=== PATIENT | male | born 1955 | race Caucasian/White ===

== ENCOUNTER 2018-04-04 13:35 | Emergency (ER) | payer OTHER, BC ==
[2018-04-04 13:58] VITALS: PULSE 79; TEMP 98; BMI 25.3
--- NOTE | 2018-04-04 14:00 | PDOC ---
History of Present Illness - General Chief Complaint: Injury Stated Complaint: FOREHEAD INJURY Time Seen by Provider: 04/04/18 13:48 History Source: Patient Exam Limitations: No Limitations - History of Present Illness Initial Comments: 04/04/18 13:56 Patient is a 62M with history of HTN and HLD here today complaining of a laceration to his forehead. Patient reports that he was fixing a door when the self-closing apparatus fell on his head. Denies loss of consciousness, vomiting , memory loss. Denies taking aspirin and any other blood thinner. Patient reports that he self-discontinued his blood pressure medication. Denies fevers, chills, nausea, vomiting. Denies fall, syncope/near-syncope, chest pain, and shortness of breath. Past History - Past Medical History Allergies/Adverse Reactions: Allergies Allergy/AdvReac Type Severity Reaction Status Date / Time rosuvastatin AdvReac myalgia, Verified 04/04/18 13:46 blurred vision Home Medications: Ambulatory Orders Multivitamin [Multi-Vitamin Daily] 1 each PO DAILY tablet 02/21/17 COPD: No - Suicide/Smoking/Psychosocial Hx Smoking History: Never smoked Hx Alcohol Use: Yes (RARE) Drug/Substance Use Hx: No Substance Use Type: None Review of Systems - Review of Systems Comments:: 04/04/18 14:03 GENERAL/CONSTITUTIONAL: No fever or chills. No weakness. HEAD, EYES, EARS, NOSE AND THROAT: No change in vision. No sore throat. CARDIOVASCULAR: No chest pain or shortness of breath RESPIRATORY: No cough, wheezing, or hemoptysis. GASTROINTESTINAL: No nausea, vomiting, diarrhea or constipation. GENITOURINARY: No dysuria, frequency, or change in urination. MUSCULOSKELETAL: No joint or muscle swelling or pain. No neck or back pain. SKIN: No rash NEUROLOGIC: +headache. No vertigo, loss of consciousness, or change in strength/ sensation. ENDOCRINE: No increased thirst. No abnormal weight change HEMATOLOGIC/LYMPHATIC: No anemia, easy bleeding, or history of blood clots. ALLERGIC/IMMUNOLOGIC: No hives or skin allergy. *Physical Exam - Vital Signs Last Vital Signs Temp Pulse Resp BP Pulse Ox 98.0 F 79 16 190/107 98 04/04/18 13:43 04/04/18 13:43 04/04/18 13:43 04/04/18 13:43 04/04/18 13:43 - Physical Exam Comments: 04/04/18 14:03 GENERAL: Awake, alert, and fully oriented, in no acute distress HEAD: T-shaped laceration about 1x1cm, normocephalic, no signs of basilar skull fracture EYES: PERRLA, EOMI, sclera anicteric, conjunctiva clear ENT: Auricles normal inspection, hearing grossly normal, nares patent, oropharynx clear without exudates. Moist mucosa NECK: Normal ROM, supple, no lymphadenopathy, JVD, or masses, no midline neck tenderness LUNGS: No distress, speaks full sentences, clear to auscultation bilaterally HEART: Regular rate and rhythm, normal S1 and S2, no murmurs, rubs or gallops, peripheral pulses normal and equal bilaterally. ABDOMEN: Soft, nontender, normoactive bowel sounds. No guarding, no rebound. No masses EXTREMITIES: Normal inspection, Normal range of motion, no edema. No clubbing or cyanosis. NEUROLOGICAL: Cranial nerves II through XII grossly intact. Normal speech, normal gait, no focal sensorimotor deficits SKIN: Warm, Dry, normal turgor, no rashes or lesions noted. Procedures - Laceration/Wound Repair Right Head Wound Length: to 2.5 cm Wound Explored: clean, no foreign body present Wound's Depth, Shape: superficial (T-shaped) Irrigated w/ Saline: Yes Anesthesia: 1% Lidocaine Amount of Anesthetic (ccs): 3 Wound Debrided: minimal Wound Repaired With: Sutures Suture Size/Type: 5:0 Number of Sutures: 3 Medical Decision Making - Medical Decision Making 04/04/18 14:04 Patient is 62M with history of HTN and HLD here today with head laceration. Vital signs show hypertension. PCP Dr Ghotra contacted, will start patient on losartan 50. Will repair, give tetanus. 04/04/18 14:27 Repaired as per note. Given return precautions. HTN medication sent to pharmacy. Instructed to f/u with Dr Ghotra. *DC/Admit/Observation/Transfer Diagnosis at time of Disposition: Laceration, Hypertension - Discharge Dispostion Disposition: HOME Condition at time of disposition: Good Decision to Admit order: No - Referrals Referrals: Mart Ghotra MD [Primary Care Provider] - - Patient Instructions Printed Discharge Instructions: DI for Laceration Repair Additional Instructions: Please return to the ED in 5 days to have your sutures removed. Please follow up with Dr Ghotra to have your blood pressure and sugars controlled Please return to the ED if you have any new, worsening or concerning symptoms. - Post Discharge Activity
[2018-04-04 14:02] VITALS: BP 178/93
[2018-04-04] MEDS ORDERED: DIPHTH,PERTUSS(ACELL),TET 0.5 ML DISP.SYRIN IM ONE (14:06)
--- NOTE | 2018-04-04 14:31 | PDOC ---
Attending Attestation - Resident Resident Name: [email or web address] - ED Attending Attestation I have performed the following: I have examined & evaluated the patient, The case was reviewed & discussed with the resident, I agree w/resident's findings & plan, Exceptions are as noted - HPI HPI: 04/04/18 14:31 Agree with residents HPI - Physicial Exam PE: 04/04/18 14:31 Agree with residents PE - Medical Decision Making 04/04/18 18:42 Minor head injury normal neurologic examination no indication for imaging based on [place] head CT rules. Laceration approximated by resident. Head injury discussed precautions and wound care precautions discussed patient. Findings, the need for follow-up and strict return instructions discussed with patient.
== END 2018-04-04 14:36 | disposition home or self-care (01) ==
LOC: FER 13:35
PROC: 0HQ1XZZ Repair Face Skin, External Approach (ICD-10-PCS; principal; 2018-04-04)
DX: S01.81XA Laceration without foreign body of other part of head, initial encounter (principal); I10 Essential (primary) hypertension; E78.5 Hyperlipidemia, unspecified; W20.8XXA Other cause of strike by thrown, projected or falling object, initial encounter; Y93.89 Activity, other specified; Y92.89 Other specified places as the place of occurrence of the external cause
CPT/HCPCS: 90715; 99282-25

== ENCOUNTER 2018-04-11 13:35 | Emergency (ER) | payer OTHER, BC ==
[2018-04-11 13:39] VITALS: BP 151/80; PULSE 71; TEMP 98.9; BMI 26.6
--- NOTE | 2018-04-11 14:02 | PDOC ---
Suture Removal/Wound Check HPI - History of Present Illness Chief Complaint: Suture/Staple Removal(Here) Stated Complaint: RT FOREHEAD SUTURE REMOVAL Time Seen by Provider: 04/11/18 13:39 Exam Limitations: Yes: No Limitations Treated at: [facility] ED Date of Last ED visit: 04/04/18 - Previous ED Treatment Type of procedure performed on last visit: Yes: Laceration Repair Tetanus Immunization: Yes: Given at last ED visit - Onset of Previous Treatment Date of Occurence: 04/04/18 Comment:: 04/11/18 13:58 62 M here for suture removal. Forehead lac sustained while installing cabinet 1 week ago. No LOC. Pt cleared by [place] head CT criteria at last visit. Pt has no complaints today. Denies MARLEY/N/V. Denies confusion/dizziness. Past History - Past Medical History Allergies/Adverse Reactions: Allergies Allergy/AdvReac Type Severity Reaction Status Date / Time rosuvastatin AdvReac myalgia, Verified 04/11/18 13:36 blurred vision Home Medications: Ambulatory Orders Multivitamin [Multi-Vitamin Daily] 1 each PO DAILY tablet 02/21/17 Losartan Potassium 50 mg PO DAILY #30 tablet 04/04/18 COPD: No HTN: Yes - Suicide/Smoking/Psychosocial Hx Smoking History: Never smoked Have you smoked in the past 12 months: No Hx Alcohol Use: No Drug/Substance Use Hx: No Substance Use Type: None Suture Removal/Wound Check PE - Physical Exam Laceration/Wound Check Symptoms: reports: None Current Severity Level: None Maximum Severity Level: None Pain Localization: None Location of Laceration/Wound: right: Head Pain Radiation: None *Review of Systems - Review of Systems Comments:: 04/11/18 14:00 "GENERAL/CONSTITUTIONAL: No fever or chills. No weakness. HEAD, EYES, EARS, NOSE AND THROAT: No change in vision. No ear pain or discharge. No sore throat. CARDIOVASCULAR: No chest pain or shortness of breath. RESPIRATORY: No cough, wheezing, or hemoptysis. GASTROINTESTINAL: No nausea, vomiting, diarrhea or constipation. GENITOURINARY: No dysuria, frequency, or change in urination. MUSCULOSKELETAL: No joint or muscle swelling or pain. No neck or back pain. SKIN: No rash NEUROLOGIC: No headache, vertigo, loss of consciousness, or change in strength/ sensation. ENDOCRINE: No increased thirst. No abnormal weight change. HEMATOLOGIC/LYMPHATIC: No anemia, easy bleeding, or history of blood clots. ALLERGIC/IMMUNOLOGIC: No hives or skin allergy. " *Physical Exam - Vital Signs Last Vital Signs Temp Pulse Resp BP Pulse Ox 98.9 F 71 18 151/80 96 04/11/18 13:35 04/11/18 13:35 04/11/18 13:35 04/11/18 13:35 04/11/18 13:35 Medical Decision Making - Medical Decision Making 04/11/18 14:00 62 M here for suture removal. - 3 sutures removed - Wound well approximated, healing well Pt is well appearing, with normal vitals. Clinically stable for DC at this time. I discussed the physical exam findings, ancillary test results and final diagnoses with the patient. I answered all of the patient's questions. The patient was satisfied with the care received and felt comfortable with the discharge plan and treatment plan. The patient agrees to follow up with the primary care physician within 24-72 hours. *DC/Admit/Observation/Transfer Diagnosis at time of Disposition: Visit for suture removal - Discharge Dispostion Disposition: HOME Condition at time of disposition: Stable - Referrals Referrals: Mart Ghotra MD [Primary Care Provider] - - Patient Instructions Printed Discharge Instructions: DI for Suture Removal Additional Instructions: Keep your wound covered when you go outside, as sun can worsen scarring. If you experience any pain, redness, swelling, drainage, bleeding, or any other concerning symptoms, return to the ER immediately. - Post Discharge Activity - Attestations Physician Attestion: 04/11/18 14:02 I, Dr. Rebel Fagan MD, attest that this document has been prepared under my direction and personally reviewed by me in its entirety. I further attest, that it accurately reflects all work, treatment, procedures and medical decision -making performed by me.
== END 2018-04-11 14:05 | disposition home or self-care (01) ==
LOC: FER 13:35
DX: Z48.02 Encounter for removal of sutures (principal)
CPT/HCPCS: 99282-25